=== PATIENT | female | born 2000 | race Caucasian/White ===

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

== ENCOUNTER 2023-09-23 11:27 | Emergency (ER) | payer MEDICAID, OTHER ==
[2023-09-23 11:54] VITALS: BP 147/96; O2SAT 100
[2023-09-23 12:19] LABS: BILIRUBIN,URINE NEGATIVE (NEGATIVE); GLUCOSE, URINE (UA) NEGATIVE (NEGATIVE); KETONES,URINE (UA) NEGATIVE (NEGATIVE); LEUKOCYTE ESTERASE, URINE SMALL (NEGATIVE); NITRITE,URINE NEGATIVE (NEGATIVE); OCCULT BLOOD,URINE LARGE (NEGATIVE); PROTEIN,URINE 100 mg/dL (NEGATIVE); UROBILINOGEN,URINE 0.2 (NORMAL) E.U./dL (NORMAL)
[2023-09-23 12:21] LABS: CLARITY,URINE CLEAR (CLEAR); HCG UR QUAL NEGATIVE
--- NOTE | 2023-09-23 12:22 | ED Physician Documentation ---
PD HPI FEMALE - Stated complaint Stated Complaint: , LOWER BACK PX - Chief complaint Chief Complaint: UTI - History obtained from History obtained from: Patient (She developed frequency and dysuria about 5 days ago and over the last 24 hours or so has developed bilateral flank pain. No fevers. 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 : None HEENT: None Psych: None Musculoskeletal: None Derm: None - Past Surgical History Past Surgical History: No Cardiovascular: Other - Present Medications Home Medications: Ambulatory Orders Medication Instructions Recorded Confirmed Ciprofloxacin HCl [Cipro] 500 mg PO BID #14 tablet 09/23/23 - Allergies Allergies/Adverse Reactions: Allergies Allergy/AdvReac Type Severity Reaction Status Date / Time No Known Drug Allergies Allergy Verified 09/23/23 11:43 - Social History Does the pt smoke?: No Smoking Status: Never smoker Does the pt drink ETOH?: Yes Does the pt have substance abuse?: Yes Substance Use and Type: Marijuana - Immunizations Immunizations are current?: Yes - POLST Patient has POLST: No PD ED PE NORMAL - Vitals Vital signs reviewed: Yes - General General: Alert and oriented X 3, No acute distress - Abdomen Abdomen: Non tender - Back Back: No CVA TTP - Neuro Neuro: Alert and oriented X 3 Results - Vitals Vitals: Vital Signs - 24 hr 09/23/23 11:43 Temperature 36.6 C Heart Rate 90 Respiratory 16 Rate Blood Pressure 147/96 H O2 Saturation 100 Oxygen O2 Source Room air - Labs Labs: Laboratory Tests 09/23/23 11:56 Urine Color YELLOW Urine Clarity CLEAR Urine pH 7.0 Ur Specific [place] <=1.005 Urine Protein 100 H Urine Glucose (UA) NEGATIVE Urine Ketones NEGATIVE Urine Occult Blood LARGE H Urine Nitrite NEGATIVE Urine Bilirubin NEGATIVE Urine Urobilinogen 0.2 (NORMAL) Ur Leukocyte Esterase SMALL H Urine RBC 0-5 Urine WBC 11-25 H Ur Squamous Epith Cells FEW Squamous Urine Bacteria Few Ur Microscopic Review INDICATED Urine Culture Comments INDICATED Urine HCG, Qual NEGATIVE PD Medical Decision Making - ED course ED course: She has cystitis with mild pyelo and positive UA. Departure - Departure Disposition: 01 Home, Self Care Clinical Impression: Pyelonephritis Condition: Good Record reviewed to determine appropriate education?: Yes Instructions: Pyelonephritis Dc Prescriptions: Ciprofloxacin HCl [Cipro] 500 mg PO BID #14 tablet Comments: I sent your prescription electronically to [facility] in [place]. We will culture your urine, the results should be done in 48-72 hours. If an antibiotic change is necessary we will call you. Return if worse in the meanti me, especially if you develop increasing flank pain, fevers, or cannot keep down the medication. Discharge Date/Time: 09/23/23 12:40
[2023-09-23 12:28] LABS: BACTERIA,URINE Few /HPF (None Seen); RBC,URINE 0-5 /HPF (0-5); SQUAMOUS EPITHELIAL CELL,UR FEW Squamous (<= Few)
[2023-09-23] MEDS: PHENAZOPYRIDINE 100 MG TABLET PO STA (12:28)
[2023-09-23] MEDS: CIPROFLOXACIN 250 MG TABLET PO STA (12:39)
--- NOTE | 2023-09-25 11:43 | ED Physician Documentation ---
ED Addendum - Addendum Addendum: 09/25/23 11:42 Urine culture reviewed. This isolate should be well treated by the Cipro she was given.
== END 2023-09-23 12:40 | disposition home or self-care (01) ==
LOC: ED 11:27
DX: N12 Tubulo-interstitial nephritis, not specified as acute or chronic (principal); N30.90 Cystitis, unspecified without hematuria
CPT/HCPCS: 81001; 81025; 87077; 87086; 99283; A9270; 81003